=== PATIENT | male | born 1940 | race Hispanic/Latino ===

== ENCOUNTER → 2017-10-29 | Day surgery (SDC) | payer MEDICARE, BC ==
[2017-10-21 16:03] LABS: BASOPHILS % 0.7 % (0.0-1.0); EOSINOPHILS # (AUTO) 0.2 (0.0-0.4); EOSINOPHILS % 3.9 % (0.0-6.0); HEMATOCRIT 40.7 % (38.2-49.6); HEMOGLOBIN 14.4 g/dL (14.0-18.0); LYMPHOCYTES # (AUTO) 1.8 (1.0-3.2); LYMPHOCYTES % 30.6 % (18.0-39.1); MEAN CORPUSCULAR HEMOGLOBIN 32.1 pg (28-32); MEAN CORPUSCULAR HGB CONC 35.4 g/dL (31-35); MEAN CORPUSCULAR VOLUME 90.6 fL (81-99); MONOCYTES # (AUTO) 0.6 (0.2-0.8); MONOCYTES % 9.5 % (4.4-11.3); NEUTROPHILS # (AUTO) 3.2 (2.1-6.9); NEUTROPHILS % 54.5 % (38.7-80.0); PLATELET COUNT 167 x10e3/uL (140-360); RED BLOOD COUNT 4.49 x10e6/uL (4.3-5.7); RED CELL DISTRIBUTION WIDTH 12.6 % (11.7-14.4)
[~2017-10-29] MED LIST: ASPIR 8181 MG PO; CARVEDILOL3.125 MG PO; CIALIS2.5 MG PO; FENTANYL CITRATE/PF 100MCG/2 ML INJ ONE; GLIMEPIRIDE2 MG PO; L-ARGININE1000 MG PO; METFORMIN HCL500 M2 PO; MIDAZOLAM HCL 2 MG/2 ML VIAL ONE; MULTI-VITAMIN1 EACH PO; OR PHACO EYE KIT ONE; PREOP PHACO EYE KIT ONE; PROBIOTIC & AC1 EACH PO; RANITIDINE HCL300 M1 PO; SAW PALMETTO450 MG PO; VASOTEC5 MG PO; VIT D3 PO
--- OUTSIDE RECORDS SUMMARY | 2017-10-29 11:03 | XMS REPORT | Clinical Summary ---
Author Author [facility] Organization [facility] Address Unknown Phone Unavailable Care Team Providers Care Detail Technician Name Role Phone Jim Harrington MD PCP Allergies No Known Allergies Current Medications Prescription Sig. Disp. Refills Start End Date Status Date atorvastatin (LIPITOR) 10 Take 10 mg by mouth 05/14/20 Active MG tablet nightly. 17 carvedilol (COREG) 3.125 Take 3.125 mg by mouth 2 04/04/20 Active MG tablet (two) times a day with 17 meals. enalapril (VASOTEC) 5 MG Take 5 mg by mouth every 04/11/20 Active tablet morning. 17 glimepiride (AMARYL) 4 MG Take 4 mg by mouth daily 05/27/20 Active tablet before breakfast. 17 metFORMIN (GLUCOPHAGE) Take 1,000 mg by mouth 2 05/06/20 Active 1,000 mg tablet (two) times a day with 17 meals. ranitidine (ZANTAC) 300 Take 300 mg by mouth 2 05/15/20 Active MG tablet (two) times a day. 17 valACYclovir (VALTREX) Take 500 mg by mouth Active 500 MG tablet daily as needed (fever blisters). tadalafil (CIALIS, Take 2.5 mg by mouth Active ADCIRCA) 2.5 mg tablet daily as needed for erectile dysfunction. xfajssws-its-KQ-lycopen-l Take 1 tablet by mouth Active utein (CENTRUM SILVER every morning. MEN) 300-600-300 mcg tablet LACTOBACILLUS RHAMNOSUS Take 1 capsule by mouth Active GG (CULTURELLE ORAL) every morning. cholecalciferol, vitamin Take 1,000 Units by mouth Active D3, (VITAMIN D3) 1,000 every morning. unit tablet aspirin 81 mg chewable Chew 1 tablet (81 mg 30 tablet 0 05/31/20 tablet total) daily for 30 days. 17 17 isosorbide dinitrate Take 1 tablet (10 mg 60 tablet 0 05/31/2006/30 (ISORDIL) 10 MG tablet total) by mouth 2 (two) 17 17 times a day for 30 days. Active Problems Problem Noted Date Chest pain 05/30/2017 Encounters Date Type Specialty Care Team Description 06/03/2017 Patient Quality Cara Page, PharmD Outreach 05/30/2017 Emergency General Internal Medicine Js Garces MD Chest pain, unspecified - Rd Roque MD type (Primary Dx) 05/31/2017 after 10/28/2016 Immunizations Name Dates Previously Given Next Due FLUCELVAX QUAD PF (0.5mL 05/31/2017 syringe) Social History Tobacco Use Types Packs/Day Years Used Date Never Smoker Alcohol Use Drinks/Week oz/Week Comments Yes daily-beer Sex Assigned at Date Recorded Not on file Last Filed Vital Signs Vital Sign Reading Time Taken Blood Pressure 139/67 05/31/2017 8:22 AM CDT Pulse 67 05/31/2017 8:22 AM CDT Temperature 36.1 C (96.9 F) 05/31/2017 8:22 AM CDT Respiratory Rate 18 05/31/2017 8:22 AM CDT Oxygen Saturation 95% 05/31/2017 8:22 AM CDT Inhaled Oxygen - - Concentration Weight 81.6 kg (180 lb) 05/30/2017 5:39 PM CDT Height 172.7 cm (5' 8") 05/30/2017 10:06 PM CDT Body Mass Index 27.37 05/30/2017 5:39 PM CDT Plan of Treatment Health Maintenance Due Date Last Done Comments COLONOSCOPY 1992 ZOSTER VACCINE 2002 PNEUMOCOCCAL 12/12/2007 POLYSACCHARIDE VACCINE AGE 65 AND OVER PNEUMOCOCCAL-13 12/12/2007 INFLUENZA VACCINE Completed 05/31/2017 Results * ECG 12 lead (05/31/2017 3:54 AM) Only the most recent of 3 results within the time period is included. Component Value Ref Range Ventricular rate 71 Atrial rate 71 ID interval 98 QRSD interval 128 QT interval 424 QTC interval 460 P axis 1 5 QRS axis 1 -6 T wave axis 25 EKG impression Sinus rhythm with short ID-Right bundle branch block-Abnormal ECG-In automated comparison with ECG of 30-MAY-2017 22:54,-No significant change was found- Specimen Performing Laboratory [facility] [address] [address] [place] [address] * Troponin (05/31/2017 2:55 AM) Only the most recent of 3 results within the time period is included. Component Value Ref Range Troponin <0.300 0.000 - 0.300 ng/mL Comment: 0.30 - 1.49 ng/ml May indicate increased risk of acute coronary syndrome. >=1.5 ng/ml Consistent with acute myocardial infarction. The diagnostic value of a single normal or non-diagnostic result is questionable. Serial samples at 2-6 hour intervals are required to rule out acute myocardial injury. Specimen Performing Laboratory Plasma specimen [facility] DEPARTMENT OF PATHOLOGY AND GENOMIC MEDICINE [address] [place] [address] [place] [address] * ECG ED Preliminary Interpretation - NOT AN ORDER (05/30/2017 9:11 PM) Paulette Garces MD 05/30/20179:11 PM ECG ED Preliminary Interpretation - Not an Order Performed by: JS GARCES Authorized by: JS GARCES ECG reviewed by ED Physician in the absence of a medical oncology physician: yes Rate: ECG rate:62 ECG rate assessment: normal Rhythm: Rhythm: sinus rhythm Conduction: Conduction: abnormal Abnormal conduction: complete RBBB ST segments: ST segments:Normal * Estimated GFR (05/30/2017 7:00 PM) Component Value Ref Range GFR Non Af Amer 73 mL/min/1.73 m2 GFR Af Amer 88 mL/min/1.73 m2 Comment: Chronic kidney disease: <60 mL/min/1.73m2 Kidney failure: <15 mL/min/1.73m2 The estimated GFR is calculated from the IDMS-traceable Modification of Diet in Renal Disease Equation. The accuracy of the calculation is poor when the creatinine is normal. Calculated values >90 mL/min/1.73m2 are not reported. This equation has not been validated in children (<18 years), women, the elderly (>70 years), or ethnic groups other than Caucasians and Americans. Specimen Performing Laboratory Plasma specimen [facility] DEPARTMENT OF PATHOLOGY AND GENOMIC MEDICINE [id number] [place] [address] [place] [address] * Partial thromboplastin time, activated (05/30/2017 7:00 PM) Component Value Ref Range PTT 31.8 23.0 - 36.0 sec Comment: PTT therapeutic range for unfractionated heparin is 61.0-112.0 seconds which corresponds to Anti-Xa 0.3-0.7 U/ml. Specimen Performing Laboratory Blood [facility] DEPARTMENT OF PATHOLOGY AND [facility] [id number] [place] [address] [place] [address] * Prothrombin time with INR (05/30/2017 7:00 PM) Component Value Ref Range Prothrombin time 13.6 12.0 - 15.0 sec INR 1.0 Comment: The International Normalized Ratio (INR) is a therapeutic monitoring tool for patients who are stable on oral anticoagulant therapy. An INR of 2.0-3.0 is suggested for deep vein thrombosis/pulmonary embolism. Specimen Performing Laboratory Blood [facility] OF PATHOLOGY AND [facility] [id number] [place] [address] [place] [address] * Basic metabolic panel (05/30/2017 7:00 PM) Component Value Ref Range Sodium 138 135 - 148 mEq/L Potassium 3.6 3.5 - 5.0 mEq/L Chloride 98 98 - 112 mEq/L CO2 27 24 - 31 mEq/L Anion gap 13 7 - 15 mEq/L Comment: Starting from November , anion gap calculation no longer incorporates potassium. Please note the change. BUN 13 8 - 23 mg/dL Creatinine 1.0 0.7 - 1.2 mg/dL Glucose 96 65 - 99 mg/dL Calcium 10.0 8.8 - 10.2 mg/dL Specimen Performing Laboratory Plasma specimen [facility] DEPARTMENT OF PATHOLOGY AND [facility] [id number] [place] [address] [place] [address] * XR Chest 2 Vw (05/30/2017 6:24 PM) Specimen Performing Laboratory [facility] [address] [place] [address] Narrative EXAMINATION:XR CHEST 2 VW CLINICAL HISTORY:76 years Male [facility]:04/13/2011 IMPRESSION: 1.Midline sternotomy wires. Heart size is at the upper limits of normal, stable. The thoracic aorta is tortuous and ectatic. Central vasculature is normal. 2.The lungs are clear. There are some chronic pleural calcifications on the right. 3.Degenerative changes in the spine. [id number] Procedure Note Interface, Radiology Results Incoming - 05/30/2017 6:29 PM CDT EXAMINATION: XR CHEST 2 VW CLINICAL HISTORY:76 years Male Chest [facility]: 04/13/2011 IMPRESSION: 1. Midline sternotomy wires. Heart size is at the upper limits of normal, stable. The thoracic aorta is tortuous and ectatic. Central vasculature is normal. 2. The lungs are clear. There are some chronic pleural calcifications on the right. 3. Degenerative changes in the spine. [id number] * CBC with platelet and differential (05/30/2017 5:45 PM) Component Value Ref Range WBC 7.81 4.50 - 11.00 k/uL RBC 4.49 4.40 - 6.00 m/uL HGB 14.5 14.0 - 18.0 g/dL HCT 40.1 (L) 41.0 - 51.0 % MCV 89.3 82.0 - 100.0 fL MCH 32.3 27.0 - 34.0 pg MCHC 36.2 31.0 - 37.0 g/dL RDW - SD 41.7 37.0 - 55.0 fL MPV 10.0 8.8 - 13.2 fL Platelet count 164 150 - 400 k/uL Nucleated RBC 0.00 /100 WBC Neutrophils 54.1 39.0 - 69.0 % Lymphocytes 32.5 25.0 - 45.0 % Monocytes 9.3 0.0 - 10.0 % Eosinophils 2.7 0.0 - 5.0 % Basophils 0.5 0.0 - 1.0 % Immature granulocytes 0.9Comment: "Immature granulocytes" 0.0 - 1.0 % (promyelocytes, myelocytes, metamyelocytes) Specimen Performing Laboratory Blood [facility] DEPARTMENT OF PATHOLOGY AND GENOMIC MEDICINE [address] [place] [address] * B natriuretic peptide (05/30/2017 5:45 PM) Component Value Ref Range BNP 19 0 - 100 pg/mL Specimen Performing Laboratory Blood [facility] DEPARTMENT OF PATHOLOGY AND GENOMIC MEDICINE [address] [place] [address] after 10/28/2016 Insurance Payer Benefit Subscriber ID Type Phone Address Plan / Group MEDICARE MEDICARE xxxxxxxxxx Medicare [place], [place] PART A [place] B BCBS BCBS xxxxxxxxxxxx PPO CHOICE PPO/DANIS GALDAMEZ PPO [place] [id number]
== END | disposition home or self-care (01) ==
LOC: OR 11:01
PROVIDERS: ATTEND Ophthalmology
DX: H25.11 Age-related nuclear cataract, right eye (principal); I25.810 Atherosclerosis of coronary artery bypass graft(s) without angina pectoris; G47.33 Obstructive sleep apnea (adult) (pediatric); I45.10 Unspecified right bundle-branch block; I10 Essential (primary) hypertension; E11.9 Type 2 diabetes mellitus without complications; K21.9 Gastro-esophageal reflux disease without esophagitis; I65.23 Occlusion and stenosis of bilateral carotid arteries; R94.31 Abnormal electrocardiogram [ECG] [EKG]; E11.319 Type 2 diabetes mellitus with unspecified diabetic retinopathy without macular edema; E78.2 Mixed hyperlipidemia; Q24.5 Malformation of coronary vessels; I34.0 Nonrheumatic mitral (valve) insufficiency; H91.13 Presbycusis, bilateral; M54.9 Dorsalgia, unspecified; N52.9 Male erectile dysfunction, unspecified; Z01.812 Encounter for preprocedural laboratory examination; Z79.82 Long term (current) use of aspirin; Z95.1 Presence of aortocoronary bypass graft; Z82.49 Family history of ischemic heart disease and other diseases of the circulatory system
CPT/HCPCS: 36415 ×2; 66984; 82948; 85025; J2250; V2632

== ENCOUNTER → 2017-11-12 | Day surgery (SDC) | payer MEDICARE, BC ==
--- OUTSIDE RECORDS SUMMARY | 2017-11-12 11:32 | XMS REPORT | Clinical Summary ---
Author Author [facility] Organization [facility] Address Unknown Phone Unavailable Care Team Providers Care Ball Point Splitter Name Role Phone Jim Harrington MD PCP [...] tablet daily as needed for erectile dysfunction. pkwoutdv-wgy-YK-lycopen-l Take 1 tablet by mouth Active utein [...] Roque MD type (Primary Dx) 05/31/2017 after 11/11/2016 Immunizations Name Dates Previously Given Next Due [...] Range Ventricular rate 71 Atrial rate 71 [place] interval 98 QRSD interval 128 QT interval 424 QTC interval 460 P axis 1 5 QRS axis 1 -6 T wave axis 25 EKG impression Sinus rhythm with short [place]-Right bundle branch block-Abnormal ECG-In automated comparison with ECG of 30-MAY-2017 22:54,-No significant change was found- Specimen Performing Laboratory [facility] M[facility] [address] [place] [address] * Troponin (05/31/2017 2:55 AM) Only the [...] myocardial injury. Specimen Performing Laboratory Plasma specimen [facility] DEPARTMENT OF PATHOLOGY AND GENOMIC MEDICINE [address] [place] [address] [place] [address] * ECG ED Preliminary Interpretation - NOT AN ORDER (05/30/2017 9:11 PM) Paulette Garces MD 05/30/20179:11 PM ECG ED Preliminary Interpretation - Not an Order Performed by: JS GARCES Authorized by: JS GARCES ECG reviewed by ED Physician in the absence of a paralegal legal secretary: yes Rate: ECG rate:62 ECG rate assessment: [...] and Americans. Specimen Performing Laboratory Plasma specimen [facility] DEPARTMENT OF PATHOLOGY AND GENOMIC MEDICINE [id number] [place] [address] [place] [address] * Partial thromboplastin time, activated (05/30/2017 7:00 PM) Component Value Ref Range PTT 31.8 23.0 - 36.0 sec Comment: PTT therapeutic range for unfractionated heparin is 61.0-112.0 seconds which corresponds to Anti-Xa 0.3-0.7 U/ml. Specimen Performing Laboratory Blood [facility] DEPARTMENT OF PATHOLOGY AND [facility] [id number] [place] [address] [place] [address] * Prothrombin time with INR (05/30/2017 7:00 PM) Component Value Ref Range Prothrombin time 13.6 12.0 - 15.0 sec INR 1.0 Comment: The International Normalized Ratio (INR) is a therapeutic monitoring tool for patients who are stable on oral anticoagulant therapy. An INR of 2.0-3.0 is suggested for deep vein thrombosis/pulmonary embolism. Specimen Performing Laboratory Blood [facility] OF PATHOLOGY AND [facility] [id number] [place] [address] [place] [address] * Basic metabolic panel (05/30/2017 7:00 PM) [...] 10.2 mg/dL Specimen Performing Laboratory Plasma specimen [facility] DEPARTMENT OF PATHOLOGY AND [facility] [id number] [place] [address] [place] [address] * XR Chest 2 Vw (05/30/2017 6:24 PM) Specimen Performing Laboratory [facility] [address] [place] [address] Narrative EXAMINATION:XR CHEST 2 VW CLINICAL HISTORY:76 years Male Chest Pain [facility] COMPARISON:04/13/2011 IMPRESSION: 1.Midline sternotomy wires. Heart size is at the upper limits of normal, stable. The thoracic aorta is tortuous and ectatic. Central vasculature is normal. 2.The lungs are clear. There are some chronic pleural calcifications on the right. 3.Degenerative changes in the spine. [id number] Procedure Note Interface, Radiology Results Incoming - 05/30/2017 6:29 PM CDT EXAMINATION: XR CHEST 2 VW CLINICAL HISTORY:76 years Male Chest Pain [facility] COMPARISON: 04/13/2011 IMPRESSION: 1. Midline sternotomy wires. Heart size is at the upper limits of normal, stable. The thoracic aorta is tortuous and ectatic. Central vasculature is normal. 2. The lungs are clear. There are some chronic pleural calcifications on the right. 3. Degenerative changes in the spine. [id number] * CBC with platelet and differential (05/30/2017 [...] (promyelocytes, myelocytes, metamyelocytes) Specimen Performing Laboratory Blood [facility] DEPARTMENT OF PATHOLOGY AND GENOMIC MEDICINE [address] [place] [address] * B natriuretic peptide (05/30/2017 5:45 PM) Component Value Ref Range BNP 19 0 - 100 pg/mL Specimen Performing Laboratory Blood [facility] DEPARTMENT OF PATHOLOGY AND GENOMIC MEDICINE [address] [place] [address] after 11/11/2016 Insurance Payer Benefit Subscriber ID Type Phone Address Plan / Group MEDICARE MEDICARE xxxxxxxxxx Medicare [place], [place] PART A AND B BCBS BCBS xxxxxxxxxxxx PPO CHOICE PPO/DANIS GALDAMEZ PPO [place] [id number]
== END | disposition home or self-care (01) ==
LOC: OR 11:29
PROVIDERS: ATTEND Ophthalmology
DX: H25.12 Age-related nuclear cataract, left eye (principal); G47.33 Obstructive sleep apnea (adult) (pediatric); I25.810 Atherosclerosis of coronary artery bypass graft(s) without angina pectoris; I10 Essential (primary) hypertension; E78.5 Hyperlipidemia, unspecified; E11.9 Type 2 diabetes mellitus without complications; H91.90 Unspecified hearing loss, unspecified ear; K44.9 Diaphragmatic hernia without obstruction or gangrene; K21.9 Gastro-esophageal reflux disease without esophagitis; I45.10 Unspecified right bundle-branch block; Z79.82 Long term (current) use of aspirin; Z87.891 Personal history of nicotine dependence; Z95.1 Presence of aortocoronary bypass graft
CPT/HCPCS: 36415; 66984; 82948; J2250; V2632